=== PATIENT | male | born 1945 | race Caucasian/White ===

== ENCOUNTER 2016-12-28 18:23 | Inpatient (IN) | payer MEDICARE, MEDICAID ==
[~2016-12-28] VITALS: Ht 175.3 cm; Wt 79.4 kg
[~2016-12-28 18:23] MED LIST: ACET650S13 RC; ATOR20TA PO; BACL10TA PO; BISA10SU8 RC; CARV6.25 PO; CLOP75TA2 PO; Hydrocodone Bit/Acetaminophen PO; LORA1TAB PO; PREG150C PO
[2016-12-28] MEDS ORDERED: HYDR453.3 TP (18:41)
[2016-12-28] MEDS ORDERED: ONDA4TAB5 PO (18:42)
[2016-12-28] MEDS ORDERED: MAGN400C PO (18:43)
[2016-12-28] MEDS ORDERED: AMLO5TAB2 PO (18:43)
[2016-12-28] MEDS ORDERED: POTA-10 PO (18:44)
[2016-12-28] MEDS ORDERED: ZOLP5TAB7 PO (18:45)
[2016-12-28] MEDS ORDERED: VANCOMYCIN IV 1,000 MG in IV DEXTROSE 5% 250 ML IV ONE (19:15)
--- NOTE | 2016-12-28 19:15 | NUR ---
care endorsed by [facility] nurse... pt here for wound check on left upper back, pt in bed alert, oriented x 4, no resp distress noted or reported upon assessment...will continue to monitor for safety, comfort and pain...
[2016-12-28 19:40] LABS: BASOPHILS # (AUTO) 0.1 K/uL (0.0-0.2); BASOPHILS % (AUTO) 0.7 % (0.0-2.0); EOSINOPHILS # (AUTO) 0.5 K/uL (0.0-0.7); EOSINOPHILS % (AUTO) 5.4 % (0.0-7.0); HEMOGLOBIN 15.6 g/dL (14.0-18.0); LYMPHOCYTES # (AUTO) 1.4 K/uL (0.8-4.8); LYMPHOCYTES % (AUTO) 13.8 % (20.5-51.5); MEAN CORPUSCULAR HEMOGLOBIN 28.9 uug (27.0-31.0); MEAN CORPUSCULAR HGB CONC 34 g/dL (32.0-37.0); MEAN CORPUSCULAR VOLUME 85.3 fL (82.0-92.0); MONOCYTES # (AUTO) 0.5 K/uL (0.1-1.30); MONOCYTES % (AUTO) 5.1 % (0.0-11.0); NEUTROPHILS # (AUTO) 7.7 K/uL (1.8-8.9); PLATELET COUNT (AUTO) 134 K/uL (150-450); RED BLOOD CELL COUNT(AUTO) 5.39 MIL/uL (4.70-6.10); RED CELL DISTRIBUTION WIDTH 13.6 % (11.5-14.5); WHITE BLOOD COUNT (AUTO) 10.2 K/uL (4.0-11.2)
[2016-12-28 19:43] LABS: CALCIUM 8.9 mg/dL (8.5-10.1); CREATININE 0.8 mg/dL (0.6-1.3); POTASSIUM 3.9 mmol/L (3.5-5.1)
[2016-12-28] MEDS ORDERED: AZITHROMYCIN IV 500 MG in IV DEXTROSE 5% 250 ML IV ONE (19:45)
[2016-12-28] MEDS ORDERED: CEFTRIAXONE 1 G in IV DEXTROSE 5% 50 ML IV ONE (19:45)
[2016-12-28 19:48] LABS: ALBUMIN 3.7 g/dL (3.4-5.0); BILIRUBIN,DIRECT 0.2 mg/dL (0.0-0.2); BILIRUBIN,TOTAL 0.6 mg/dL (0.2-1.0); TOTAL PROTEIN, SERUM 7.4 g/dL (6.4-8.2)
[2016-12-28 19:50] LABS: TROPONIN I 0.017 ng/mL (0.00-0.056)
[2016-12-28] MEDS ORDERED: VANCOMYCIN IV 200 ML ONE (19:51)
[2016-12-28 19:55] LABS: LACTIC ACID 1.4 mmol/L (0.4-2.0)
[2016-12-28] MEDS ORDERED: CEFTRIAXONE 1 G VIAL ONE (19:57)
[2016-12-28] MEDS ORDERED: AZITHROMYCIN 500 MG VIAL IV ONE (20:17)
[2016-12-28] MEDS ORDERED: IV NORMAL SALINE 1000 ML BAG IV ONE (20:30)
--- NOTE | 2016-12-28 21:02 | NUR ---
PAGED DR BRADFORD REQUEST BY DR SHERIDAN FOR ADMISSION TO HOSPITAL. WAITING FOR CALL BACK
[2016-12-28 21:40] LABS: *BILIRUBIN,URIN NEGATIVE (NEGATIVE); *BLOOD, URINE NEGATIVE (NEGATIVE); *CLARITY,URINE CLEAR (CLEAR); *COLOR,URINE YELLOW (YELLOW); *KETONES,URINE NEGATIVE (NEGATIVE); *PROTEIN,URINE TRACE (NEGATIVE); *UROBILINOGEN,URINE 0.2 E.U./dl (NORMAL); LEUKOCYTE ESTERASE ,URINE NEGATIVE (NEGATIVE); NITRITE, URINE NEGATIVE (NEGATIVE); UGLUCOSE NEGATIVE (NEGATIVE)
--- NOTE | 2016-12-28 21:48 | NUR ---
[address]ND P[address] FOR DR BRADFORD. WAITING FOR CALL BACK
[2016-12-28 21:52] LABS: MUCUS,URINE MODERATE /LPF (0-FEW); SQUAMOUS EPITHELIAL CELL,UR FEW /HPF (NONE SEEN); WBC,URINE 0-3 /HPF (0-3)
--- NOTE | 2016-12-28 22:32 | NUR ---
Pt. admitted to Tele , under care of Dr. Mathews, Belongs List completed, pt is alert, oriented x 4, no resp distress noted or reported upon transfer assessment... pt transferred via gurney...
--- NOTE | 2016-12-28 23:15 | NUR ---
[facility] USHERED TO ROOM AND PLACED COMFORTABLY ON BED. ABLE TO MAKE NEEDS KNOWN. ABLE TO PROVIDE HISTORY. WITH LEFT SIDE WEAKNESS AND LEFT AKA. BODY ASSESSMENT DONE. SAFETY INITIATED. INSTRUCTED HOW TO USE CALL LIGHT WHEN IN NEED OF ASSISTANCE. CALL LIGHT WITHIN REACH. WILL CONTINUE TO MONITOR
[2016-12-29 05:43] VITALS: BP 125/78
--- NOTE | 2016-12-29 06:21 | NUR ---
SLEPT INTERMITTENTLY DURING THE SHIFT, NO ACUTE DISTRESS NOTED. REMAINS SINUS RHYTHM. NEEDS ATTENDED. KEPT COMFORTABLE AT ALL TIMES. CALL LIGHT WITHIN REACH
[2016-12-29 07:12] LABS: CALCIUM 8.6 mg/dL (8.5-10.1); CREATININE 0.7 mg/dL (0.6-1.3); POTASSIUM 3.5 mmol/L (3.5-5.1)
[2016-12-29] MEDS ORDERED: ACETAMINOPHEN 325 MG TABLET PO PRN (08:30)
[2016-12-29] MEDS ORDERED: LORAZEPAM 1 MG TABLET PO PRN (08:30)
[2016-12-29] MEDS ORDERED: ONDANSETRON HCL 4 MG TABLET PO PRN (08:30)
[2016-12-29] MEDS: MAGNESIUM OXIDE 400 MG TABLET PO SCH (09:05)
[2016-12-29] MEDS: PREGABALIN 25 MG CAPSULE PO SCH ×2 (09:05→17:12)
[2016-12-29] MEDS: POTASSIUM CHLORIDE 10 MEQ CAPSULE.SA PO SCH (09:05)
[2016-12-29] MEDS: CLOPIDOGREL 75 MG TABLET PO SCH (09:05)
[2016-12-29] MEDS: AMLODIPINE 5 MG TABLET PO SCH (09:06)
[2016-12-29] MEDS: BACLOFEN 10 MG TABLET PO SCH ×2 (09:08→17:12)
[2016-12-29] MEDS: HYDROCORTISONE 2.5% CREAM 20 GM TUBE TOP SCH (11:12)
[2016-12-29 11:36] VITALS: BP 122/86
[2016-12-29 16:08] VITALS: BP 131/81
[2016-12-29] MEDS ORDERED: HYDROCODONE/APAP 5-325MG TABLET PO PRN (17:00)
[2016-12-29] MEDS: CARVEDILOL 6.25 MG TABLET PO SCH (17:18)
--- NOTE | 2016-12-29 19:30 | NUR ---
RESTING IN BED, ABLE TO MAKE NEEDS KNOWN. NO ACUTE DISTRESS NOTED. SAFETY MAINTAINED. NEEDS ATTENDED. CALL LIGHT WITHIN REACH. WILL CONTINUE TO MONITOR
[2016-12-29 20:00] VITALS: BP 124/79
[2016-12-29] MEDS: ATORVASTATIN 20 MG TABLET PO SCH (21:16)
[2016-12-29] MEDS: ZOLPIDEM 5 MG TABLET PO SCH (21:17)
[2016-12-30 04:38] VITALS: BP 117/66
--- NOTE | 2016-12-30 06:04 | NUR ---
SLEPT INTERMITTENTLY DURING THE SHIFT. NO ACUTE DISTRESS NOTED. ALL DUE MEDS GIVEN ORDERED. TURNED AND REPOSITIONED. NEEDS ATTENDED. CALL LIGHT WITHIN REACH
[2016-12-30] MEDS: BACLOFEN 10 MG TABLET PO SCH ×2 (08:11→17:29)
[2016-12-30] MEDS: CLOPIDOGREL 75 MG TABLET PO SCH (08:11)
[2016-12-30] MEDS: POTASSIUM CHLORIDE 10 MEQ CAPSULE.SA PO SCH (08:11)
[2016-12-30] MEDS: MAGNESIUM OXIDE 400 MG TABLET PO SCH (08:12)
[2016-12-30] MEDS: CARVEDILOL 6.25 MG TABLET PO SCH ×2 (08:12→17:34)
[2016-12-30] MEDS: AMLODIPINE 5 MG TABLET PO SCH (08:12)
[2016-12-30] MEDS: PREGABALIN 25 MG CAPSULE PO SCH ×2 (08:12→17:29)
[2016-12-30] MEDS: HYDROCORTISONE 2.5% CREAM 20 GM TUBE TOP SCH (08:13)
[2016-12-30] MEDS: PIPERACILLIN/TAZOBACTAM/D5W 50 ML IV SCH ×3 (08:21→20:10)
--- NOTE | 2016-12-30 09:20 | NUR ---
CLINICAL PHARMACY NOTE:VANCOMYCIN DOSING Subjective: To start vancomycin dosing on 71 y/o male for PNA Objective: Temp 98.3 BUN 9 (4/5) Scr 0.7 (4/5) WBC 10.2 (4/5) wt 175 lb ht 5' 9'' Assessment/Plan: Will start Vancomycin 1250mg IV every 16hrs for predicted vancomycin trough level of 16 mcg/ml s steady state. First dose is due today at 0900. Plan to draw through by 4th dose(level not yet ordered). Will monitor renal function daily and adjust as needed. Will continue to monitor.
[2016-12-30] MEDS: VANCOMYCIN IV 1,250 MG in IV DEXTROSE 5% 500 ML IV SCH (09:25)
[2016-12-30 11:43] VITALS: BP 123/81
--- NOTE | 2016-12-30 12:40 | NUR ---
WOUND CARE CONSULT: PATIENT SEEN AND SKIN ASSESSMENT DONE. PATIENT ALERT, ORIENTED, LEFT AKA, ABLE TO TURN AND REPOSITION HOWEVER NEEDS ASSIST, MAINE 14, CONTINENT. SEE TODAY'S SKIN ASSESSMENT IN PCS ALONG WITH RECOMMENDATIONS. RECOMMEND MOISTURE PROTECTION WITH Z GUARD PRN AND ASSIST PATIENT FOR PRESSURE PREVENTION MEASURES. ALL DISCUSSED WITH NURSING STAFF. MD IN AGREEMENT WITH PLAN OF CARE. Addendum: 12/30/16 at 1243 by COSMO AYALA WNDNU Amended: Links added.
[2016-12-30] MEDS ORDERED: Z GUARD REMEDY PASTE 57 GM TUBE TOP PRN (12:45)
[2016-12-30 16:00] VITALS: BP 133/83
--- NOTE | 2016-12-30 19:30 | NUR ---
NO CHANGES NOTED.
[2016-12-30 20:00] VITALS: BP 138/78
--- NOTE | 2016-12-30 20:00 | NUR ---
RECEIVED PATIENT AWAKE IN BED. PATIENT IS A/O X2. DENIES PAIN OR DISCOMFORT. NO RESP. DISTRESS NOTED. H/L INTACT AND PATENT, NOTED TO RIGHT FA #22 GAUGE. VSS. BED ALARM ON. CALL LIGHT IN REACH. ALL NEEDS ATTENDED. WILL CONTINUE TO MONITOR.
[2016-12-30] MEDS: ATORVASTATIN 20 MG TABLET PO SCH (20:34)
[2016-12-30] MEDS: ZOLPIDEM 5 MG TABLET PO SCH (20:34)
[2016-12-31] MEDS: VANCOMYCIN IV 1,250 MG in IV DEXTROSE 5% 500 ML IV SCH ×2 (00:57→01:50)
[2016-12-31] MEDS: PIPERACILLIN/TAZOBACTAM/D5W 50 ML IV SCH ×4 (01:00→13:46)
[2016-12-31 05:45] VITALS: BP 127/80
--- NOTE | 2016-12-31 06:11 | NUR ---
PATIENT AWAKE IN BED. SLEPT AT SMALL INTERVALS. VSS. DENIES PAIN OR DISCOMFORT. NO RESP. DISTRESS NOTED. BED ALARM ON. CALL LIGHT IN REACH. ALL NEEDS ATTENDED. WILL CONTINUE TO MONITOR.
--- NOTE | 2016-12-31 07:00 | NUR ---
PT IS LAYING IN BED COMFORTABLY. NO S/S OF RESPIRATORY DISTRESS NOTED. NO PAIN NOTED. ALL SAFETY NEEDS ARE MET. WILL CONTINUE TO MONITOR.
[2016-12-31] MEDS: CARVEDILOL 6.25 MG TABLET PO SCH (08:00)
[2016-12-31] MEDS: CLOPIDOGREL 75 MG TABLET PO SCH (08:23)
[2016-12-31] MEDS: BACLOFEN 10 MG TABLET PO SCH (08:23)
[2016-12-31] MEDS: PREGABALIN 25 MG CAPSULE PO SCH (08:24)
[2016-12-31] MEDS: MAGNESIUM OXIDE 400 MG TABLET PO SCH (08:24)
[2016-12-31] MEDS: POTASSIUM CHLORIDE 10 MEQ CAPSULE.SA PO SCH (08:24)
[2016-12-31] MEDS: AMLODIPINE 5 MG TABLET PO SCH (08:25)
[2016-12-31] MEDS: HYDROCORTISONE 2.5% CREAM 20 GM TUBE TOP SCH (08:26)
[2016-12-31 11:04] VITALS: BP 129/84
[2016-12-31] MEDS ORDERED: RXVAN XX (12:17)
[2016-12-31] MEDS ORDERED: PIPE3.376 IV (12:17)
--- NOTE | 2016-12-31 16:30 | NUR ---
PT IS DISCHRGED. NO S/S OF RESPIRATORY DISTRESS NOTED. NO PAIN REPORTED. PICTURES ARE TAKEN OF SKIN. EDUCATION IS PROVIDED. REPORT IS GIVEN TO MERYL BURDEN FROM [facility]. WRISTBAND IS REMOVED. V/S WNL.
[2016-12-31 16:33] VITALS: BP 127/80
--- NOTE | 2016-12-31 16:42 | NUR ---
CLINICAL PHARMACY NOTE:VANCOMYCIN DOSING Subjective: To continue vancomycin dosing on 71 y/o male for PNA Objective: Temp 98.6 BUN 9 (4/5) Scr 0.7 (4/5) WBC 10.2 (4/5) wt 175 lb ht 5' 9'' Assessment/Plan: Will continue Vancomycin 1250mg IV every 16hrs for predicted vancomycin trough level of 16 mcg/ml s steady state. Third dose today at 1700. Plan to draw through by 4th dose(ordered for tomorrow 01/01 @ 0830). Will check trough in am and adjust as needed. Will monitor renal function daily and adjust as needed. Will continue to monitor.
== END 2016-12-31 16:40 | DRG 602 ==
LOC: ER 18:31 → TELE 22:25 → MED 12-29 14:13
PROVIDERS: ADMIT Internal Medicine; ATTEND Internal Medicine
DX: L03.312 Cellulitis of back [any part except buttock and flank] (principal); J18.9 Pneumonia, unspecified organism; I69.354 Hemiplegia and hemiparesis following cerebral infarction affecting left non-dominant side; Z89.612 Acquired absence of left leg above knee; Z90.49 Acquired absence of other specified parts of digestive tract; Z79.02 Long term (current) use of antithrombotics/antiplatelets; I25.10 Atherosclerotic heart disease of native coronary artery without angina pectoris; K21.9 Gastro-esophageal reflux disease without esophagitis; B96.89 Other specified bacterial agents as the cause of diseases classified elsewhere; I73.9 Peripheral vascular disease, unspecified; M10.9 Gout, unspecified; G89.29 Other chronic pain; F03.90 Unspecified dementia, unspecified severity, without behavioral disturbance, psychotic disturbance, mood disturbance, and anxiety; E78.00 Pure hypercholesterolemia, unspecified; N28.9 Disorder of kidney and ureter, unspecified; Z79.899 Other long term (current) drug therapy; I10 Essential (primary) hypertension; I25.2 Old myocardial infarction; Z85.828 Personal history of other malignant neoplasm of skin
CPT/HCPCS: 36415; 70030-TC; 71010; 83605; 85025; 85730; 87040; 87070; 87077; 87086; 93005; 97001; A4663; J0456; J0696; J2543; J3370; J7030; J7050; J7060

== ENCOUNTER 2019-01-25 19:04 | Inpatient (IN) | payer MEDICARE, OTHER ==
[~2019-01-25] VITALS: Ht 172.7 cm; Wt 67.1 kg
[~2019-01-25 19:04] MED LIST changes: +AMLO5TAB9 PO; -BISA10SU8 RC; +CLOP75TA15 PO; -CLOP75TA2 PO; +HYDR453.3 TP; +MAGN400C PO; +ONDA4TAB5 PO; +PIPE3.376 IV; +POTA-10 PO; +RXVAN XX; +ZOLP5TAB8 PO
[2019-01-25] MEDS ORDERED: CEFTRIAXONE 1 G in IV DEXTROSE 5% 50 ML IV ONE (19:15)
[2019-01-25] MEDS ORDERED: METRONIDAZOLE 500 MG/NS 100ML 100 ML IV ONE ×2 (19:15→19:27)
[2019-01-25] MEDS ORDERED: VANCOMYCIN IV 1,000 MG in IV DEXTROSE 5% 250 ML IV ONE (19:15)
--- NOTE | 2019-01-25 19:15 | NUR ---
PATIENT WAS SEEN BY MD. HE IS AWAKE AND ALERT.
[2019-01-25] MEDS ORDERED: HYDR-3326 PO (19:26)
[2019-01-25] MEDS ORDERED: KETO120S6 TP (19:26)
[2019-01-25] MEDS ORDERED: PROC10TA13 PO (19:26)
[2019-01-25] MEDS ORDERED: SERT50TA12 PO (19:26)
[2019-01-25] MEDS ORDERED: ONDA4TAB11 PO (19:26)
[2019-01-25] MEDS ORDERED: CEFTRIAXONE 1 G VIAL ONE (19:26)
[2019-01-25] MEDS ORDERED: QUET50TA PO (19:26)
[2019-01-25] MEDS ORDERED: DIVA250T4 PO (19:26)
[2019-01-25] MEDS ORDERED: MIRT15TA7 PO (19:26)
--- NOTE | 2019-01-25 19:28 | NUR ---
Dr. Salinas speaking with Dr. Marc of [facility] medical [facility].
[2019-01-25 19:38] LABS: BASOPHILS # (AUTO) 0.1 K/uL (0.0-8.0); BASOPHILS % (AUTO) 1.1 % (0.0-2.0); EOSINOPHILS # (AUTO) 0.5 K/uL (0.0-0.7); EOSINOPHILS % (AUTO) 5.7 % (0.0-7.0); HEMOGLOBIN 13.2 g/dL (12.5-16.3); LYMPHOCYTES # (AUTO) 1.6 K/uL (20.0-40.0); LYMPHOCYTES % (AUTO) 18.9 % (20.5-51.5); MEAN CORPUSCULAR HEMOGLOBIN 28.2 uug (23.8-33.4); MEAN CORPUSCULAR HGB CONC 33 g/dL (32.5-36.3); MEAN CORPUSCULAR VOLUME 85.6 fL (73.0-96.2); MONOCYTES # (AUTO) 0.5 K/uL (2.0-10.0); MONOCYTES % (AUTO) 6.4 % (0.0-11.0); NEUTROPHILS # (AUTO) 5.7 K/uL (1.8-8.9); NEUTROPHILS % (AUTO) 67.9 % (38.5-71.5); PLATELET COUNT (AUTO) 161 K/uL (152-348); RED BLOOD CELL COUNT(AUTO) 4.67 MIL/uL (4.06-5.63); WHITE BLOOD COUNT (AUTO) 8.4 K/uL (3.6-10.2)
[2019-01-25 19:46] LABS: CARBON DIOXIDE 26 mmol/L (21-32); CHLORIDE 105 mmol/L (98-107); CREATININE 0.6 mg/dL (0.6-1.3); GLUCOSE 127 mg/dL (74-106); POTASSIUM 3.9 mmol/L (3.5-5.1); UREA NITROGEN, BLOOD 17 mg/dL (7-18)
[2019-01-25 19:52] LABS: ALANINE AMINOTRANSFERASE 21 U/L (16-63); ALKALINE PHOSPHATASE 87 U/L (50-136); ASPARTATE AMINOTRANSFERASE 10 U/L (15-37); BILIRUBIN,DIRECT 0.2 mg/dL (0.0-0.2); BILIRUBIN,TOTAL 0.5 mg/dL (0.2-1.0); TOTAL PROTEIN, SERUM 6.9 g/dL (6.4-8.2)
--- NOTE | 2019-01-25 20:01 | NUR ---
REPORT GIVEN TO BRAYDEN SHETH ON M/S FLOOR.
--- NOTE | 2019-01-25 20:01 | NUR ---
NEW DRESSING APPLIED TO LEFT ARM.
[2019-01-25] MEDS ORDERED: VANCOMYCIN IV 200 ML ONE (20:08)
--- NOTE | 2019-01-25 20:14 | NUR ---
PATIENT TO RECEIVE VANCO ON M/S FLOOR. BRAYDEN AWARE. DR TSE WROTE AN ORDER FOR MED TO BE GIVEN ON M/S FLOOW SINCE YL IS RUNNING NOW....
--- NOTE | 2019-01-25 20:20 | NUR ---
Received patient via gurney, awake and alert, accompanied by ED nurse. Transferred to hospital bed safely, changed into hospital gown and made comfortable in bed. Patient is tolerating room air, not in any form of distress. Patient is being admitted for left upper arm cellulitis/pressure ulcer. Noted left arm wound, dressed and covered with kerlix, dry and intact. Patient has an IV access on the right antecubital vein, 20g to ongoing Flagyl. Noted skin excoriation at the upper back, cleansed, applied hydrogel and covered with nonadherent dressing. 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 Patient oriented to unit. No complaints at the moment. Bed in low position, locked, side rails up x 2. Call light within reach. Will continue to monitor. Noise and lights subdued.
[2019-01-25 20:54] VITALS: BP 105/79
[2019-01-25] MEDS ORDERED: HYDROCODONE BIT PO PRN (21:00)
[2019-01-25] MEDS ORDERED: ONDANSETRON ODT 4 MG TAB.RAPDIS SL PRN (21:00)
[2019-01-25] MEDS ORDERED: LORAZEPAM 1 MG TABLET PO PRN (21:00)
[2019-01-25] MEDS ORDERED: ACETAMINOPHEN PO PRN (21:00)
[2019-01-25] MEDS ORDERED: PROCHLORPERAZINE MALEATE 10 MG TABLET PO SCH (21:00)
[2019-01-25] MEDS ORDERED: Medication Not On Formulary EA (Quetiapine Fumarate (Seroquel) 50 MG) PO SCH (21:00)
[2019-01-25] MEDS: ATORVASTATIN 20 MG TABLET PO SCH (21:39)
[2019-01-25] MEDS: MIRTAZAPINE 15 MG TABLET PO SCH (21:39)
[2019-01-25] MEDS ORDERED: VANCOMYCIN IV 1 G in PREMIXED 0 EACH IV SCH (22:00)
[2019-01-26] MEDS: HYDROCODONE/APAP 5-325MG TABLET PO PRN ×2 (02:25→10:58)
[2019-01-26 04:34] VITALS: BP 119/87
--- NOTE | 2019-01-26 05:48 | NUR ---
Patient slept well throughout the night. With IV access to saline lock, patent and intact. Wound treatment and dressing change done. Complained of pain, relieved with PRN pain medication. No other complaints made. No other untoward events noted. Attended all needs. Ensured safety and comfort.
[2019-01-26 06:19] LABS: BASOPHILS # (AUTO) 0.1 K/uL (0.0-8.0); BASOPHILS % (AUTO) 0.7 % (0.0-2.0); EOSINOPHILS # (AUTO) 0.4 K/uL (0.0-0.7); HEMATOCRIT 38.8 % (36.7-47.1); HEMOGLOBIN 13.1 g/dL (12.5-16.3); LYMPHOCYTES # (AUTO) 1.1 K/uL (20.0-40.0); LYMPHOCYTES % (AUTO) 13.3 % (20.5-51.5); MEAN CORPUSCULAR HEMOGLOBIN 28.9 uug (23.8-33.4); MEAN CORPUSCULAR HGB CONC 34 g/dL (32.5-36.3); MEAN CORPUSCULAR VOLUME 85.4 fL (73.0-96.2); MONOCYTES # (AUTO) 0.5 K/uL (2.0-10.0); MONOCYTES % (AUTO) 6.8 % (0.0-11.0); NEUTROPHILS # (AUTO) 5.9 K/uL (1.8-8.9); NEUTROPHILS % (AUTO) 74.2 % (38.5-71.5); PLATELET COUNT (AUTO) 145 K/uL (152-348); RED BLOOD CELL COUNT(AUTO) 4.54 MIL/uL (4.06-5.63); WHITE BLOOD COUNT (AUTO) 7.9 K/uL (3.6-10.2)
[2019-01-26 06:36] LABS: CARBON DIOXIDE 26 mmol/L (21-32); CHLORIDE 106 mmol/L (98-107); CREATININE 0.6 mg/dL (0.6-1.3); GLUCOSE 96 mg/dL (74-106); POTASSIUM 3.9 mmol/L (3.5-5.1); UREA NITROGEN, BLOOD 14 mg/dL (7-18)
--- NOTE | 2019-01-26 08:00 | NUR ---
AWAKE ALERT AND VERBALLY RESPONSIVE, PATIENT NOTED TO BE EASILY GET AGITATED AND ANXIOUS ABOUT STAYING IN THE HOSPITAL "I WANT TO GO HOME IV"E BEEN HERE SINCE LAST NIGHT" REALITY ORIENTATION DONE. NO SS OF DISTRESS OR SEVERE PAIN, CLOSELY MONITORED
[2019-01-26] MEDS: DIVALPROEX 250 MG TABLET.DR PO SCH (08:21)
[2019-01-26] MEDS: BACLOFEN 10 MG TABLET PO SCH ×2 (08:21→17:24)
[2019-01-26] MEDS: SERTRALINE HCL 50 MG TABLET PO SCH (08:21)
[2019-01-26] MEDS: CLOPIDOGREL 75 MG TABLET PO SCH (08:21)
[2019-01-26] MEDS: Z GUARD REMEDY PASTE 57 GM TUBE TOP PRN (08:22)
[2019-01-26] MEDS: AMLODIPINE 5 MG TABLET PO SCH (08:24)
[2019-01-26] MEDS: MAGNESIUM OXIDE 400 MG TABLET PO SCH (08:34)
[2019-01-26] MEDS: POTASSIUM CHLORIDE 10 MEQ TAB.PRT.SR PO SCH (08:34)
[2019-01-26] MEDS ORDERED: HYDROCODONE/APAP 5-325MG TABLET PO PRN (08:45)
[2019-01-26] MEDS ORDERED: POTASSIUM CHLORIDE PO SCH (09:00)
[2019-01-26] MEDS ORDERED: Medication Not On Formulary EA (Pregabalin (Lyrica) 75 MG) PO SCH (09:00)
[2019-01-26] MEDS: PREGABALIN 25 MG CAPSULE PO SCH ×2 (10:58→20:09)
--- NOTE | 2019-01-26 11:00 | NUR ---
SEEN BY RONALD DÍAZ FOR WOUND FOLLOW-UP WITH ORDERS. CONTINUE WITH PAIN MANAGEMENT. NO ACUTE CHANGE
[2019-01-26 11:09] VITALS: BP 123/77
[2019-01-26] MEDS: HYDROCORTISONE 2.5% CREAM 20 GM TUBE TOP SCH (11:54)
[2019-01-26] MEDS: NYSTATIN/TRIAMCINOLONE CREAM 15 GM TUBE TOP SCH ×2 (13:58→20:17)
[2019-01-26] MEDS: VANCOMYCIN IV 1 G in PREMIXED 0 EACH IV SCH ×2 (14:28→21:25)
[2019-01-26 15:20] VITALS: BP 113/85
[2019-01-26] MEDS: CARVEDILOL 6.25 MG TABLET PO SCH (17:27)
--- NOTE | 2019-01-26 17:30 | NUR ---
SEEN BY COLLECTION TEAM LEAD FOR ID SEE NOTES.
--- NOTE | 2019-01-26 17:37 | NUR ---
PHARMACY CLINICAL NOTES ( VANCOMYCIN DOSING) S: 73 YO male with DX of infected left arm (celllulitis) , being treated empirically with Vancomcyin O: BUN/SCR 14/0.6, WBC 7.9, TEMP 98.3, DOSING WT 67 KG A/P: Patient received 1 gm Vancomycin last night @ 2200, will continue with 1gm ivpb q12h. first dose ~ 1400 (dose #1) . Estimated peak 37.3 and trough of 18. will continue to monitor renal fxn and Vanco level prior to 4th dose (not ordered yet ) and adjust the dose accordingly if necessary.
[2019-01-26] MEDS ORDERED: ZOLPIDEM 5 MG TABLET PO SCH (18:00)
--- NOTE | 2019-01-26 18:11 | NUR ---
CONTINUE WITH IV ANTIBIOTIC FOR CELLULITIS, NO ALLERGY REACTION NOTED
--- NOTE | 2019-01-26 19:40 | NUR ---
Received patient awake and alert in bed. No signs of acute distress noted. No complaints of pain or SOB. Patient is on low air loss mattress. Heplock on the right AC is intact and patent. Safety measures initiated. Bed is low and locked, call light within reach. Will continue to monitor.
[2019-01-26 20:00] VITALS: BP 119/79
[2019-01-26] MEDS: CEFTRIAXONE 1 G in IV DEXTROSE 5% 50 ML IV SCH (20:07)
[2019-01-26] MEDS: QUETIAPINE FUMARATE 25 MG TABLET PO SCH (20:09)
[2019-01-26] MEDS: MIRTAZAPINE 15 MG TABLET PO SCH (20:09)
[2019-01-26] MEDS: ATORVASTATIN 20 MG TABLET PO SCH (20:10)
[2019-01-26] MEDS: ZOLPIDEM 5 MG TABLET PO SCH (21:00)
[2019-01-27 04:47] VITALS: BP 113/69
[2019-01-27] MEDS: HYDROCODONE/APAP 5-325MG TABLET PO PRN ×2 (05:29→15:49)
--- NOTE | 2019-01-27 05:58 | NUR ---
Patient slept well throughout shift. No signs of acute distress noted. No complaints of SOB. Complained of 5/10 pain during dressing change to left arm. PRN pain medication given and is effective. Heplock on the right AC is intact and patent. All medications given as ordered and tolerated well. Will endorse to next shift plan of care.
--- NOTE | 2019-01-27 07:12 | NUR ---
received patient in bed alert and oriented. No signs of acute distress noted. No complaints of SOB. Heplock on the right AC is intact and patent. will continue treatment plan.
[2019-01-27] MEDS: VANCOMYCIN IV 1 G in PREMIXED 0 EACH IV SCH ×2 (08:53→21:28)
[2019-01-27] MEDS: CARVEDILOL 6.25 MG TABLET PO SCH ×2 (09:16→17:43)
[2019-01-27] MEDS: POTASSIUM CHLORIDE 10 MEQ TAB.PRT.SR PO SCH (09:17)
[2019-01-27] MEDS: CLOPIDOGREL 75 MG TABLET PO SCH (09:17)
[2019-01-27] MEDS: SERTRALINE HCL 50 MG TABLET PO SCH (09:17)
[2019-01-27] MEDS: BACLOFEN 10 MG TABLET PO SCH ×2 (09:17→17:37)
[2019-01-27] MEDS: DIVALPROEX 250 MG TABLET.DR PO SCH (09:17)
[2019-01-27] MEDS: AMLODIPINE 5 MG TABLET PO SCH (09:17)
[2019-01-27] MEDS: MAGNESIUM OXIDE 400 MG TABLET PO SCH (09:17)
[2019-01-27] MEDS: HYDROCORTISONE 2.5% CREAM 20 GM TUBE TOP SCH (09:26)
[2019-01-27] MEDS: NYSTATIN/TRIAMCINOLONE CREAM 15 GM TUBE TOP SCH ×2 (09:26→20:17)
[2019-01-27] MEDS: PREGABALIN 25 MG CAPSULE PO SCH ×2 (09:27→20:11)
[2019-01-27 11:03] VITALS: BP 121/80
[2019-01-27 15:05] VITALS: BP 106/82
--- NOTE | 2019-01-27 15:18 | NUR ---
PHARMACY CLINICAL NOTES ( VANCOMYCIN DOSING) S: 73 YO male with DX of infected left arm (celllulitis) , being treated empirically with Vancomcyin O: BUN/SCR 14/0.6 (01/26), WBC 7.9 (01/26), TEMP 98, DOSING WT 67 KG Trough pending tomorrow at 0830 A/P: Will continue with 1gm ivpb q12h for estimated peak 37.3 and trough of 18. Trough due tomorrow at 0830 before 4th scheduled dose. Will check level at that time and adjust as needed. Will follow
--- NOTE | 2019-01-27 18:25 | NUR ---
patient in bed, alert and oriented. No signs of acute distress noted. No complaints of SOB. Heplock on the right FA is intact and patent. all due medications given, treatment on the left arm and on back provide, all needs attended. will continue treatment plan with security shift supervisor.
[2019-01-27 19:28] VITALS: BP 127/74
--- NOTE | 2019-01-27 19:35 | NUR ---
Received patient in bed awake and alert. No signs of acute distress noted. No complaints of pain or SOB. Heplock on the right forearm is intact. Dressing on the left arm is intact. Patient able to make needs known. Safety measures initiated. Bed is low and locked, call light within reach. Will continue to monitor.
[2019-01-27] MEDS: QUETIAPINE FUMARATE 25 MG TABLET PO SCH (20:11)
[2019-01-27] MEDS: CEFTRIAXONE 1 G in IV DEXTROSE 5% 50 ML IV SCH (20:11)
[2019-01-27] MEDS: ATORVASTATIN 20 MG TABLET PO SCH (20:11)
[2019-01-27] MEDS: MIRTAZAPINE 15 MG TABLET PO SCH (20:11)
[2019-01-27] MEDS: ZOLPIDEM 5 MG TABLET PO SCH (21:00)
[2019-01-28] MEDS: HYDROCODONE/APAP 5-325MG TABLET PO PRN ×3 (04:59→18:40)
--- NOTE | 2019-01-28 06:47 | NUR ---
Patient slept well throughout shift. No signs of acute distress. Complained of pain with PRN pain medication given x1 and was effective. Dressing changed done. Medications given as ordered. Patient continues to refuse Ambien saying "he never took that stuff and doesn't have trouble sleeping" Safety measures given .
--- NOTE | 2019-01-28 07:46 | NUR ---
ON FIRST STEP NAYANA FOR COMFORT AWAKE ALERT AND ORIENTED STATED FEELS OKAY AT THIS TIME LEFT ARM WITH DRESSING INTACT WITH NO S/S OF DRAINAGE AT THIS TIME ON ROOM AIR CALL LIGHTS AND PERSONAL BELONGINGS PLACED WITHIN EASY REACH WILL CONTINUE TO OBSERVE AND PROVIDE COMFORT AT ALL TIMES.
--- NOTE | 2019-01-28 07:47 | NUR ---
WOUND CARE CONSULT WOUND CARE RECEIVED CONSULT FOR LEFT ARM CELLULITIS AND BACK SKIN EXCORIATION. WOUND CARE WILL DEFER CONSULT AND TREATMENT PLANS TO PLASTIC SURGICAL TEAM WHO ARE CURRENTLY FOLLOWING THIS PATIENT. PATIENT WITH MAINE AT 11, ALL PRESSURE ULCER PREVENTION MEASURES ARE NOTED TO BE IN PLACE AT THIS TIME. WILL SEE PRN.
[2019-01-28] MEDS: MAGNESIUM OXIDE 400 MG TABLET PO SCH (08:34)
[2019-01-28] MEDS: BACLOFEN 10 MG TABLET PO SCH ×2 (08:34→17:08)
[2019-01-28] MEDS: POTASSIUM CHLORIDE 10 MEQ TAB.PRT.SR PO SCH (08:34)
[2019-01-28] MEDS: DIVALPROEX 250 MG TABLET.DR PO SCH (08:34)
[2019-01-28] MEDS: CLOPIDOGREL 75 MG TABLET PO SCH (08:34)
[2019-01-28] MEDS: SERTRALINE HCL 50 MG TABLET PO SCH (08:34)
[2019-01-28] MEDS: Z GUARD REMEDY PASTE 57 GM TUBE TOP PRN (08:35)
[2019-01-28] MEDS: HYDROCORTISONE 2.5% CREAM 20 GM TUBE TOP SCH (08:35)
[2019-01-28] MEDS: NYSTATIN/TRIAMCINOLONE CREAM 15 GM TUBE TOP SCH ×2 (08:35→21:00)
[2019-01-28] MEDS: CARVEDILOL 6.25 MG TABLET PO SCH ×2 (08:37→17:08)
[2019-01-28] MEDS: AMLODIPINE 5 MG TABLET PO SCH (08:38)
[2019-01-28] MEDS: PREGABALIN 25 MG CAPSULE PO SCH ×2 (08:42→20:44)
[2019-01-28] MEDS ORDERED: KETOCONAZOLE 2% SHAMPOO 120 ML BOTTLE TP SCH (09:00)
[2019-01-28] MEDS: VANCOMYCIN IV 1 G in PREMIXED 0 EACH IV SCH ×2 (10:05→22:40)
[2019-01-28 11:41] VITALS: BP 111/72
--- NOTE | 2019-01-28 11:53 | NUR ---
PHARMACY CLINICAL NOTES ( VANCOMYCIN DOSING) S: To continue vanco dosing for this 73 yo male for infected left arm (celllulitis) O: BUN/SCR 14/0.6 (01/26), WBC 7.9 (01/26), TEMP 98.2 Trough level: 17.8 (on 01/28 at 0830) ht 172.7 cm wt 67 kg A/P: Since vanco trough level is within therapeutic range, will continue same dose of vanco 1gm ivpb q12h for today. Next dose at 2100 tonight. Will monitor renal function. Will follow
--- NOTE | 2019-01-28 12:00 | NUR ---
RECEIVED CALL FROM ИВАН MARIA PATIENT IS POSITIVE FOR MRSA WOUND ON HIS LEFT ARM CALLED AND NOTIFIED DR HANLEY WITH ORDERS TO PLACE PATIENT ON ISOLATION PATIENT IS ALREADY ON VANCOMICIN AND BEING FOLLOWED BY THE INFECTIOUS DISEASE PRACTITIONER. WILL CONTINUE TO OBSERVE
[2019-01-28 15:19] VITALS: BP 112/72
--- NOTE | 2019-01-28 17:36 | NUR ---
AWAKE RESTING DENIES DISCOMFORTS AT THIS TIME REMAIN ON ISOLATION ORDERED NOT IN DISTRESS AT THIS TIME.
--- NOTE | 2019-01-28 19:30 | NUR ---
PATIENT ALERT NO SOB NO CHEST PAIN NOTED, LEFT ARM WOUND DRESSING INTACT AT THIS TIME. TURN AND REPOSITION, ON CONTACT ISOLATION MRSA OF THE WOUND, KEPT COMFORTABLE.
[2019-01-28 20:00] VITALS: BP 113/79
[2019-01-28] MEDS: ATORVASTATIN 20 MG TABLET PO SCH (20:44)
[2019-01-28] MEDS: MIRTAZAPINE 15 MG TABLET PO SCH (20:44)
[2019-01-28] MEDS: QUETIAPINE FUMARATE 25 MG TABLET PO SCH (20:44)
[2019-01-28] MEDS: CEFTRIAXONE 1 G in IV DEXTROSE 5% 50 ML IV SCH (20:44)
[2019-01-28] MEDS: ZOLPIDEM 5 MG TABLET PO SCH (21:00)
--- NOTE | 2019-01-29 05:10 | NUR ---
PATIENT AWAKE, ALERT NO SOB NO CHEST PAIN, CONT ON PAIN MANAGEMENT OF LEFT ARM WOUND. TX DONE ON LEFT ARM WOUND AND L ARM SCAB WOUND, UPPER BACK WOUND AND RASHES. KEPT CLEAN AND DRY, TURN AND REPOSITION. REMAIN ON CONTACT ISOLATION MRSA OF THE WOUND. PATIENT ON AIR MATTRESS. CONT TO MONITOR.
[2019-01-29 05:30] VITALS: BP 136/88
--- NOTE | 2019-01-29 07:35 | NUR ---
PATIENT IS AWAKE ALERT AND VERBALLY RESPONSIVE BUT SOMEWHAT DISORIENTED ABLE TO MAKE SIMPLE NEEDS KNOWN.TOTALLY DEPENDENT ON NURSES FOR ALL ADL TURNED AND REPOSITIONED Q2H ON SPECIALTY MATTRASS FOR COMFORT LEFT ARM WITH DRESING DRY AND INTACT AT THIS TIME MADE COMFORTABLE WILL CONTINUE TO OBSERVE PT.
[2019-01-29] MEDS: SERTRALINE HCL 50 MG TABLET PO SCH (08:14)
[2019-01-29] MEDS: MAGNESIUM OXIDE 400 MG TABLET PO SCH (08:14)
[2019-01-29] MEDS: DIVALPROEX 250 MG TABLET.DR PO SCH (08:14)
[2019-01-29] MEDS: CLOPIDOGREL 75 MG TABLET PO SCH (08:14)
[2019-01-29] MEDS: POTASSIUM CHLORIDE 10 MEQ TAB.PRT.SR PO SCH (08:14)
[2019-01-29] MEDS: BACLOFEN 10 MG TABLET PO SCH ×2 (08:14→16:02)
[2019-01-29] MEDS: NYSTATIN/TRIAMCINOLONE CREAM 15 GM TUBE TOP SCH (08:15)
[2019-01-29] MEDS: Z GUARD REMEDY PASTE 57 GM TUBE TOP PRN (08:15)
[2019-01-29] MEDS: HYDROCORTISONE 2.5% CREAM 20 GM TUBE TOP SCH (08:16)
[2019-01-29] MEDS: CARVEDILOL 6.25 MG TABLET PO SCH (08:16)
[2019-01-29] MEDS: AMLODIPINE 5 MG TABLET PO SCH (08:16)
[2019-01-29] MEDS: VANCOMYCIN IV 1 G in PREMIXED 0 EACH IV SCH (08:40)
[2019-01-29] MEDS: PREGABALIN 25 MG CAPSULE PO SCH (09:14)
--- NOTE | 2019-01-29 09:56 | NUR ---
DR GREENE HERE TO SEE PATIENT AWARE OF THE MRSA WOUND WITH NO NEW ORDERS AT THIS TIME.
--- NOTE | 2019-01-29 10:10 | NUR ---
PHARMACY CLINICAL NOTES ( VANCOMYCIN DOSING) S: To continue vanco dosing for this 73 yo male for infected left arm (cellulitis) O: BUN/SCR 14/0.6 (01/26), WBC 7.9 (01/26), TEMP 97.8 Trough level: 17.8 (on 01/28 at 0830) ht 172.7 cm wt 67 kg A/P: Will continue same dose of vanco 1gm ivpb q12h for today. Next dose at 2100 tonight. Will monitor renal function. Will follow
[2019-01-29 11:09] VITALS: BP 111/73
--- NOTE | 2019-01-29 12:29 | NUR ---
PER THE BULLDOZER/LOADER/COMPACTOR/SCRAPER INTERNAL MEDICINE VETERINARY TECHNICIAN PATIENT WILL BE DISCHARGED TO [facility] TODAY WILL NEED EXTENDED IV ANTIBIOTICS AND A MID LINE WILL BE PLACED TODAY PRIOR TO DISCHARGE
[2019-01-29] MEDS ORDERED: RXVAN XX (12:46)
[2019-01-29] MEDS: HYDROCODONE/APAP 5-325MG TABLET PO PRN (13:37)
--- NOTE | 2019-01-29 13:40 | NUR ---
MID LINE INSERTED RIGHT UPPER ARM GAUGE 18 TOLERATED PROCEDURE WELL
--- NOTE | 2019-01-29 15:30 | NUR ---
CALLED THE [facility] AND REPORT GIVEN TO SUREKHA FOR CONTINUING CARE RE IV ANTIBIOTICS AND MIDLINE INSERTION AND SHE EXPRESSED UNDERSTANDING
[2019-01-29 16:08] VITALS: BP 107/62
--- NOTE | 2019-01-29 17:00 | NUR ---
PATIENT DISCHARGED PICKED UP BY THE AMBULANCE WITH ALL OF HIS PERSONAL BELONGINGS IN SATISFACTORY CONDITION.
== END 2019-01-29 17:00 | DRG 602 ==
LOC: ER 19:08 → MERGE 19:08 → MEDSURG3 20:07
PROVIDERS: ADMIT Internal Medicine Nephrology; ATTEND Internal Medicine Nephrology
PROC: 05HY33Z Insertion of Infusion Device into Upper Vein, Percutaneous Approach (ICD-10-PCS; principal; 2019-01-29)
DX: L03.114 Cellulitis of left upper limb (principal); R53.2 Functional quadriplegia; I69.354 Hemiplegia and hemiparesis following cerebral infarction affecting left non-dominant side; C44.609 Unspecified malignant neoplasm of skin of left upper limb, including shoulder; B36.9 Superficial mycosis, unspecified; Z89.612 Acquired absence of left leg above knee; R21 Rash and other nonspecific skin eruption; B95.2 Enterococcus as the cause of diseases classified elsewhere; B96.89 Other specified bacterial agents as the cause of diseases classified elsewhere; B95.62 Methicillin resistant Staphylococcus aureus infection as the cause of diseases classified elsewhere; I73.9 Peripheral vascular disease, unspecified; F41.9 Anxiety disorder, unspecified; I25.10 Atherosclerotic heart disease of native coronary artery without angina pectoris; I10 Essential (primary) hypertension; F03.90 Unspecified dementia, unspecified severity, without behavioral disturbance, psychotic disturbance, mood disturbance, and anxiety
CPT/HCPCS: 36415; 36569; 73060; 73090; 85025; 87040; 87070; 87077; A4217; A4663; G0378; J0696; J3370; J3490; J7050; J7060; Q0164

== ENCOUNTER 2019-06-20 15:03 | Inpatient (IN) | payer MEDICARE, MEDICAID ==
[~2019-06-20] VITALS: Ht 175.3 cm; Wt 74.8 kg
[~2019-06-20 15:03] MED LIST changes: -ACET650S13 RC; +DIVA250T4 PO; +HYDR-3326 PO; +KETO120S6 TP; -LORA1TAB PO; +MIRT15TA7 PO; +ONDA4TAB11 PO; -ONDA4TAB5 PO; +PROC10TA13 PO; +QUET50TA PO; +SERT50TA12 PO
[2019-06-20] MEDS ORDERED: AMLO5TAB9 PO (15:19)
[2019-06-20] MEDS ORDERED: QUET50TA PO (15:19)
[2019-06-20] MEDS ORDERED: MIRT15TA PO (15:19)
[2019-06-20] MEDS ORDERED: VICODIN PO (15:19)
[2019-06-20] MEDS ORDERED: CLOP75TA15 PO (15:19)
[2019-06-20] MEDS ORDERED: LORA1TAB PO (15:19)
[2019-06-20] MEDS ORDERED: KETO120S6 TP (15:19)
[2019-06-20] MEDS ORDERED: PREG150C PO (15:19)
[2019-06-20] MEDS ORDERED: SERT50TA PO (15:19)
[2019-06-20] MEDS ORDERED: ZOLP5TAB8 PO (15:19)
[2019-06-20] MEDS ORDERED: DIVA-78 PO (15:19)
[2019-06-20] MEDS ORDERED: MULT1TAB62 PO (15:19)
[2019-06-20] MEDS ORDERED: PROC10TA29 PO (15:19)
[2019-06-20] MEDS ORDERED: MAGN400T8 PO (15:19)
[2019-06-20] MEDS ORDERED: HYDR453.4 TP (15:19)
[2019-06-20] MEDS ORDERED: BACL10TA PO (15:19)
[2019-06-20] MEDS ORDERED: ATOR20TA PO (15:19)
[2019-06-20] MEDS ORDERED: POTA10TA15 PO (15:19)
[2019-06-20] MEDS ORDERED: ACET-2067 PO (15:19)
[2019-06-20] MEDS ORDERED: IV NORMAL SALINE 1000 ML BAG IV ONE (15:45)
[2019-06-20] MEDS ORDERED: PIPERACILLIN SODIUM/TAZOBACTAM 3.375 G in IV DEXTROSE 5% 50 ML IV ONE (15:45)
[2019-06-20] MEDS ORDERED: VANCOMYCIN IV 1,000 MG in IV DEXTROSE 5% 250 ML IV ONE (15:45)
[2019-06-20] MEDS ORDERED: VANCOMYCIN IV 200 ML ONE (15:53)
[2019-06-20] MEDS ORDERED: PIPERACILLIN/TAZOBACTAM/D5W 50 ML IV ONE (15:54)
[2019-06-20 15:59] LABS: BASOPHILS % (AUTO) 0.3 % (0.0-2.0); CREATININE 0.8 mg/dL (0.6-1.3); EOSINOPHILS # (AUTO) 0.4 K/uL (0.0-0.7); EOSINOPHILS % (AUTO) 4.2 % (0.0-7.0); HEMATOCRIT 39.2 % (36.7-47.1); LYMPHOCYTES # (AUTO) 0.9 K/uL (20.0-40.0); LYMPHOCYTES % (AUTO) 10.2 % (20.5-51.5); MEAN CORPUSCULAR HEMOGLOBIN 29.5 uug (23.8-33.4); MEAN CORPUSCULAR HGB CONC 33 g/dL (32.5-36.3); MEAN CORPUSCULAR VOLUME 88.5 fL (73.0-96.2); MONOCYTES # (AUTO) 0.5 K/uL (2.0-10.0); MONOCYTES % (AUTO) 5.6 % (0.0-11.0); NEUTROPHILS % (AUTO) 79.7 % (38.5-71.5); PLATELET COUNT (AUTO) 128 K/uL (152-348); POTASSIUM 4.2 mmol/L (3.5-5.1); RED BLOOD CELL COUNT(AUTO) 4.42 MIL/uL (4.06-5.63); WHITE BLOOD COUNT (AUTO) 8.8 K/uL (3.6-10.2)
[2019-06-20 16:12] LABS: BILIRUBIN,DIRECT 0.1 mg/dL (0.0-0.2); BILIRUBIN,TOTAL 0.4 mg/dL (0.2-1.0); TOTAL PROTEIN, SERUM 7.4 g/dL (6.4-8.2)
--- NOTE | 2019-06-20 18:14 | NUR ---
pt transfered to floor in stable condition. pt did not compain of pain in the left arm unless moving that extremety. pt did not request any pain med while in er. pt watching footbal on tv while in er, no sign of distress.
[2019-06-20 18:51] VITALS: BP 126/76
[2019-06-20] MEDS ORDERED: ONDANSETRON 4 MG/2 ML VIAL IV PRN (19:45)
[2019-06-20] MEDS ORDERED: PROCHLORPERAZINE MALEATE 10 MG TABLET PO PRN (19:45)
[2019-06-20] MEDS ORDERED: MAGNESIUM HYDROXIDE 30 ML LIQUID UDC PO PRN (19:45)
[2019-06-20] MEDS ORDERED: LORAZEPAM 1 MG TABLET PO PRN (19:45)
[2019-06-20] MEDS ORDERED: ACETAMINOPHEN 325 MG TABLET PO PRN (19:45)
--- NOTE | 2019-06-20 19:45 | NUR ---
Beginning of Shift/Med Surg Admission Received report from AM nurse Stacey SHETH. Pt is a new admit for L arm Cellulitis. AM nurse started admission process and endorsed to continue. Initial physical assessment done with Aide TITLE 1 TUTOR. Pt is noted to be alert and oriented x 3 but very hard of hearing. Needs to repeat information before patient comprehends. L sided severe weakness/rigidity noted. Face drooping on L side. 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 All VS within normal parameters. All skin issues documented and photos taken. Noted with overall dry skin, yellowish flakes and areas of dry/necrotic skin protruding. L leg amputated above the knee. Sacro-coccyx area is clean and dry. Teaching performed regarding wound and infection on L arm. Pt verbalized understanding but appears to need more reinforcement due to being very hard of hearing. Pt placed in position of comfort. Declined to have pillows on L side/to offload lower extremities. Will continue to monitor.
--- NOTE | 2019-06-20 20:15 | NUR ---
PHARMACY CLINICAL NOTES (VANCOMYCIN DOSING) S: 73 YO male , admitted for cellulitis, ordered Vancomycin O: BUN/SCR 17/.8; WBC 8.8, TEMP 98.3 ; DOSING WT 165 LBS A/P: PT received 1 dose of Vancomycin in ER @ 16:31, will Continue with dose of 1000 mg IVPB q14h next dose tomorrow morning dose # 2. Estimated peak of 35 and trough of 17. RX will order trough prior to 4th dose ( on 06/22 ~ 10:30) and adjust dose if necessary. will continue monitoring renal fxn
[2019-06-20 20:19] VITALS: BP 125/67
[2019-06-20] MEDS: ACETAMINOPHEN 325 MG TABLET PO PRN (20:31)
[2019-06-20] MEDS: ZOLPIDEM 5 MG TABLET PO SCH (20:59)
[2019-06-20] MEDS: ATORVASTATIN 20 MG TABLET PO SCH (20:59)
[2019-06-20] MEDS ORDERED: Medication Not On Formulary EA (Quetiapine Fumarate (Seroquel) 50 MG) PO SCH (21:00)
[2019-06-20] MEDS: QUETIAPINE FUMARATE 25 MG TABLET PO SCH (21:00)
--- NOTE | 2019-06-21 01:30 | NUR ---
Mid Shift Patient sleeping well at this time, likes to keep light on. Ambien was given at bedtime, and remains effective. No signs of pain, discomfort, difficulty of breathing or any new stroke. Will continue to monitor.
[2019-06-21] MEDS: ACETAMINOPHEN 325 MG TABLET PO PRN ×2 (04:19→10:29)
[2019-06-21 05:10] VITALS: BP 121/81
[2019-06-21] MEDS ORDERED: VANCOMYCIN IV 1,000 MG in IV DEXTROSE 5% 250 ML IV SCH (06:30)
--- NOTE | 2019-06-21 07:45 | NUR ---
Patient resting comfortably in bed at this time. no signs of distress. awake/alert x3. bed rest. No complaints of pain at this time. Will continue to monitor throughout shift. Safety measures implemented.
[2019-06-21 07:51] LABS: BASOPHILS % (AUTO) 0.6 % (0.0-2.0); EOSINOPHILS # (AUTO) 0.2 K/uL (0.0-0.7); EOSINOPHILS % (AUTO) 3.2 % (0.0-7.0); HEMATOCRIT 37.8 % (36.7-47.1); HEMOGLOBIN 12.3 g/dL (12.5-16.3); LYMPHOCYTES # (AUTO) 0.5 K/uL (20.0-40.0); LYMPHOCYTES % (AUTO) 5.8 % (20.5-51.5); MEAN CORPUSCULAR HEMOGLOBIN 28.7 uug (23.8-33.4); MEAN CORPUSCULAR HGB CONC 33 g/dL (32.5-36.3); MONOCYTES # (AUTO) 0.4 K/uL (2.0-10.0); MONOCYTES % (AUTO) 5.1 % (0.0-11.0); NEUTROPHILS # (AUTO) 6.8 K/uL (1.8-8.9); NEUTROPHILS % (AUTO) 85.3 % (38.5-71.5); PLATELET COUNT (AUTO) 105 K/uL (152-348); WHITE BLOOD COUNT (AUTO) 7.9 K/uL (3.6-10.2)
[2019-06-21 08:18] LABS: CARBON DIOXIDE 25 mmol/L (21-32); CHLORIDE 105 mmol/L (98-107); CHOLESTEROL 73 mg/dL (<200); CREATININE 0.5 mg/dL (0.6-1.3); GLUCOSE 114 mg/dL (74-106); HDL CHOLESTEROL 31 mg/dL (40-60); MAGNESIUM 1.7 mg/dL (1.8-2.4); PHOSPHOROUS 3.5 mg/dL (2.5-4.9); POTASSIUM 3.8 mmol/L (3.5-5.1); TRIGLYCERIDES 50 MG/DL (30-150); UREA NITROGEN, BLOOD 13 mg/dL (7-18)
[2019-06-21] MEDS: AMLODIPINE 5 MG TABLET PO SCH (09:00)
[2019-06-21] MEDS ORDERED: BACLOFEN 10 MG TABLET PO SCH (09:00)
[2019-06-21] MEDS ORDERED: [UNRECOGNIZED DRUG - OTHER] PO SCH (09:00)
[2019-06-21] MEDS: CLOPIDOGREL 75 MG TABLET PO SCH (09:25)
[2019-06-21] MEDS: SERTRALINE HCL 50 MG TABLET PO SCH (09:25)
[2019-06-21] MEDS: MIRTAZAPINE 15 MG TABLET PO SCH (09:25)
[2019-06-21] MEDS: MAGNESIUM OXIDE 400 MG TABLET PO SCH (09:25)
[2019-06-21] MEDS: MULTIVIT, IRON, MIN NO. 8, FA TABLET PO SCH (09:25)
[2019-06-21] MEDS: PREGABALIN 50 MG CAPSULE PO SCH ×2 (09:25→18:41)
[2019-06-21] MEDS: DIVALPROEX 500 MG TABLET.DR PO SCH (09:25)
[2019-06-21] MEDS: BACLOFEN 10 MG TABLET PO SCH ×2 (09:26→18:41)
[2019-06-21] MEDS: CARVEDILOL 6.25 MG TABLET PO SCH ×2 (09:26→18:41)
--- NOTE | 2019-06-21 10:30 | NUR ---
Patient complaining of lower extremity pain 6/10 on pain scale. Tylenol 650 mg PO administered.
[2019-06-21 12:02] VITALS: BP 96/63
--- NOTE | 2019-06-21 14:01 | NUR ---
PHARMACY CLINICAL NOTES (VANCOMYCIN DOSING) S: 73 YO male , Continue vanco for cellulitis, ordered Vancomycin O: BUN/SCR 13/0.5; WBC 7.9, TEMP 98.4 ; DOSING WT 165 LBS A/P: Since renal function is improved, will increase dose to 1 gram IV every 10 hrs(2nd dose today at 1600) and draw trough by 4th dose(ordered for tomorrow at 1130) for expected trough around 16. Will monitor daily.
[2019-06-21] MEDS: KETOCONAZOLE 2% SHAMPOO 120 ML BOTTLE TP SCH (15:21)
[2019-06-21] MEDS: HYDROCORTISONE 2.5% ONT. 28.35 GM TUBE TP SCH (15:21)
[2019-06-21 16:25] VITALS: BP 114/74
[2019-06-21] MEDS: VANCOMYCIN IV 1,000 MG in IV DEXTROSE 5% 250 ML IV SCH (16:42)
--- NOTE | 2019-06-21 20:07 | NUR ---
RECEIVED PATIENT AWAKE IN BED. A/O X3. SON AT BEDSIDE. PATIENT DENIES ANY PAIN OR DISCOMFORT AT THIS TIME. NO RESP. DISTRESS NOTED. DRESSING NOTED TO LEFT UPPER ARM, C/D/I. H/L INTACT AND PATENT. NO RESP. DISTRESS NOTED. CALL LIGHT IN REACH. BED ALARM ON. ALL NEEDS ATTENDED. WILL CONTINUE TO MONITOR AND ASSESS.
[2019-06-21] MEDS: ZOLPIDEM 5 MG TABLET PO SCH (20:32)
[2019-06-21] MEDS: ATORVASTATIN 20 MG TABLET PO SCH (20:33)
[2019-06-21] MEDS: QUETIAPINE FUMARATE 25 MG TABLET PO SCH (20:33)
[2019-06-21 20:34] VITALS: BP 120/75
--- NOTE | 2019-06-22 02:00 | NUR ---
received report from production supervisor off shift nurse. no s/s of acute distress and v/s stable. will continue plan of care.
[2019-06-22] MEDS: VANCOMYCIN IV 1,000 MG in IV DEXTROSE 5% 250 ML IV SCH (02:46)
[2019-06-22 04:00] VITALS: BP 116/89
[2019-06-22] MEDS: CARVEDILOL 6.25 MG TABLET PO SCH ×2 (08:00→17:09)
[2019-06-22] MEDS: AMLODIPINE 5 MG TABLET PO SCH (09:00)
[2019-06-22] MEDS: MIRTAZAPINE 15 MG TABLET PO SCH (09:32)
[2019-06-22] MEDS: MULTIVIT, IRON, MIN NO. 8, FA TABLET PO SCH (09:32)
[2019-06-22] MEDS: DIVALPROEX 500 MG TABLET.DR PO SCH (09:32)
[2019-06-22] MEDS: BACLOFEN 10 MG TABLET PO SCH ×2 (09:32→17:08)
[2019-06-22] MEDS: SERTRALINE HCL 50 MG TABLET PO SCH (09:33)
[2019-06-22] MEDS: MAGNESIUM OXIDE 400 MG TABLET PO SCH (09:33)
[2019-06-22] MEDS: PREGABALIN 50 MG CAPSULE PO SCH ×2 (09:33→17:08)
[2019-06-22] MEDS: CLOPIDOGREL 75 MG TABLET PO SCH (09:33)
[2019-06-22] MEDS: HYDROCORTISONE 2.5% ONT. 28.35 GM TUBE TP SCH (09:35)
--- NOTE | 2019-06-22 11:26 | NUR ---
Received pt. resting in bed alert oriented x3 confused. IV in R AC 20 gauge intact patent saline lock. Pt. denies SOB/ difficulty breathing. Pt. denies pain or discomfort. Safety measures in place. Call light within reach. Will continue to monitor pt.
[2019-06-22 11:53] VITALS: BP 100/67
[2019-06-22] MEDS: ACETAMINOPHEN 325 MG TABLET PO PRN ×2 (12:22→21:06)
--- NOTE | 2019-06-22 12:25 | NUR ---
PHARMACY CLINICAL NOTES (VANCOMYCIN DOSING) S: To continue vanco dosing for this 73 yo male patient for cellulitis O: BUN/SCR 13/0.5 (06/21); WBC 7.9 (06/21), TEMP 99 Vanco trough level on 06/22 at 1130: 23.8 ht 175 cm wt 74.8 kg A/P: Since the vanco trough level is above 20 mcg/ml, will change dose to 1250 mg IV every 16 hrs. 1st dose today at 2200. and draw trough by 4th dose(not yet ordered) for expected trough around 15. Will monitor daily.
[2019-06-22 15:45] VITALS: BP 110/70
--- NOTE | 2019-06-22 18:37 | NUR ---
Pt. compliant with medication. pt. refused to have dressing changed on left upper arm. MGIUEL ANGEL castro also asked pt. if he wanted dressing to be changed later in day and pt. refused. Pt. asked for tylenol during shift for 5/10 pain in right arm. Pain ceased after medication. Pt. denies SOB or difficulty breathing. Safety measures in place. Call light within reach. Will continue to monitor pt.
[2019-06-22 19:45] VITALS: BP 101/72
[2019-06-22] MEDS: MUPIROCIN 2% OINT 22 GM TUBE NS SCH (20:46)
[2019-06-22] MEDS: ATORVASTATIN 20 MG TABLET PO SCH (20:47)
[2019-06-22] MEDS: QUETIAPINE FUMARATE 25 MG TABLET PO SCH (20:47)
[2019-06-22] MEDS: ZOLPIDEM 5 MG TABLET PO SCH (21:00)
[2019-06-22] MEDS: VANCOMYCIN IV 1,250 MG in IV DEXTROSE 5% 250 ML IV SCH (21:05)
[2019-06-23 04:41] VITALS: BP 101/58
[2019-06-23 06:25] LABS: BASOPHILS % (AUTO) 0.4 % (0.0-2.0); EOSINOPHILS # (AUTO) 0.4 K/uL (0.0-0.7); HEMATOCRIT 34.4 % (36.7-47.1); HEMOGLOBIN 11.4 g/dL (12.5-16.3); LYMPHOCYTES # (AUTO) 0.8 K/uL (20.0-40.0); LYMPHOCYTES % (AUTO) 8.6 % (20.5-51.5); MEAN CORPUSCULAR HEMOGLOBIN 28.8 uug (23.8-33.4); MEAN CORPUSCULAR HGB CONC 33 g/dL (32.5-36.3); MEAN CORPUSCULAR VOLUME 86.9 fL (73.0-96.2); MONOCYTES # (AUTO) 0.7 K/uL (2.0-10.0); MONOCYTES % (AUTO) 7.2 % (0.0-11.0); NEUTROPHILS # (AUTO) 7.4 K/uL (1.8-8.9); NEUTROPHILS % (AUTO) 79.8 % (38.5-71.5); PLATELET COUNT (AUTO) 105 K/uL (152-348); RED BLOOD CELL COUNT(AUTO) 3.96 MIL/uL (4.06-5.63); WHITE BLOOD COUNT (AUTO) 9.3 K/uL (3.6-10.2)
[2019-06-23 06:44] LABS: BILIRUBIN,TOTAL 0.6 mg/dL (0.2-1.0); CREATININE 0.6 mg/dL (0.6-1.3); MAGNESIUM 1.9 mg/dL (1.8-2.4); PHOSPHOROUS 3.8 mg/dL (2.5-4.9); POTASSIUM 3.1 mmol/L (3.5-5.1); TOTAL PROTEIN, SERUM 6.4 g/dL (6.4-8.2)
--- NOTE | 2019-06-23 06:50 | NUR ---
patient slept well last night. dressing changed. Patinet is not in any distress. no changes. bed alarm on, side rails up x 2, bed in locked position, call light within reach. will endorse to am shift.
--- NOTE | 2019-06-23 07:40 | NUR ---
PT RESTING COMFORTABLY IN BED. AT THIS TIME. NO SIGNS OF ACUTE DISTRESS OR SOB. PT AWAKE. ALERT AND ORIENTED X3. PT DENIES PAIN AT THIS TIME. SAFETY MEASURES IMPLEMENTED. CALL LIGHT WITHIN REACH. WILL CONTINUE TO MONITOR.
[2019-06-23] MEDS: CARVEDILOL 6.25 MG TABLET PO SCH ×2 (08:20→17:15)
[2019-06-23] MEDS: MIRTAZAPINE 15 MG TABLET PO SCH (08:21)
[2019-06-23] MEDS: MAGNESIUM OXIDE 400 MG TABLET PO SCH (08:21)
[2019-06-23] MEDS: BACLOFEN 10 MG TABLET PO SCH ×2 (08:21→17:10)
[2019-06-23] MEDS: PREGABALIN 50 MG CAPSULE PO SCH ×2 (08:21→17:10)
[2019-06-23] MEDS: SERTRALINE HCL 50 MG TABLET PO SCH (08:21)
[2019-06-23] MEDS: DIVALPROEX 500 MG TABLET.DR PO SCH (08:21)
[2019-06-23] MEDS: CLOPIDOGREL 75 MG TABLET PO SCH (08:22)
[2019-06-23] MEDS: MULTIVIT, IRON, MIN NO. 8, FA TABLET PO SCH (08:22)
[2019-06-23] MEDS: AMLODIPINE 5 MG TABLET PO SCH (08:22)
[2019-06-23] MEDS: MUPIROCIN 2% OINT 22 GM TUBE NS SCH ×2 (08:34→20:21)
[2019-06-23 11:52] VITALS: BP 99/66
--- NOTE | 2019-06-23 12:00 | NUR ---
PT IS MEDICATION COMPLIANT. NO ACUTE DISTRESS OR SOB NOTED AT THIS TIME. PT IS COMFORTABLE IN BED. PT REPOSITIONED Q2 HOURS. CALL LIGHT WITHIN REACH. BED LOCKED IN LOW POSITION. PT DENIES PAIN AT THIS TIME. PT IS AWAKE, ALERT AND ORIENTED X3. WILL CONTINUE TO MONITOR.
[2019-06-23] MEDS: HYDROCORTISONE 2.5% ONT. 28.35 GM TUBE TP SCH (12:42)
[2019-06-23] MEDS ORDERED: POTASSIUM CHLORIDE 20 MEQ TAB.PRT.SR PO ONE (13:15)
--- NOTE | 2019-06-23 13:16 | NUR ---
PHARMACY CLINICAL NOTES (VANCOMYCIN DOSING) S: To continue vanco dosing for this 73 yo male patient for cellulitis O: BUN/SCR 8/0.6; WBC 9.3, TEMP 98.3 Vanco trough level on 06/22 at 1130: 23.8 ht 175 cm wt 74.8 kg A/P: Will continue new vanco regimen of 1250 mg IV every 16 hrs, 2nd dose today at 1400, and draw trough by 4th dose(not yet ordered) for expected trough around 15. Will monitor daily.
[2019-06-23] MEDS: VANCOMYCIN IV 1,250 MG in IV DEXTROSE 5% 250 ML IV SCH (13:56)
--- NOTE | 2019-06-23 14:30 | NUR ---
OFFERED PT PAIN MEDICATION PRIOR TO PERFORMING ASSESSMENT OF LEFT UPPER ARM WOUND AND TREATMENT. PT REFUSED ASSESSMENT AND TREATMENT AT THIS TIME. PT STATES THAT HE WISHES TO HAVE WOUND ASSESSES AND TREATED AT NIGHT AND ONLY ONCE PER DAY. EXPLAINED RISKS AND BENEFITS OF WOUND ASSESSMENT AND TREATMENT. PT UNDERSTANDS.
[2019-06-23 16:00] VITALS: BP 122/88
[2019-06-23] MEDS: HYDROCODONE/APAP 5-325MG TABLET PO PRN (18:34)
--- NOTE | 2019-06-23 18:35 | NUR ---
PT IS RESTING COMFORTABLY IN BED. PT REPOSITIONED. PT REQUESTED PAIN MED AT THIS TIME. MADE PATIENT AWARE OF STORE CLERK CASHIER RN NEED FOR ASSESSMENT AND TREATMENT OF LEFT UPPER ARM WOUND. NO ACUTE DISTRESS NOTED. NO SOB NOTED. CALL LIGHT WITHIN REACH. BED LOCKED IN LOW POSITION. WILL GIVE REPORT ACCORDINGLY.
[2019-06-23 19:40] VITALS: BP 118/73
[2019-06-23] MEDS: ZOLPIDEM 5 MG TABLET PO SCH (20:21)
[2019-06-23] MEDS: ATORVASTATIN 20 MG TABLET PO SCH (20:21)
[2019-06-23] MEDS: QUETIAPINE FUMARATE 25 MG TABLET PO SCH (20:21)
[2019-06-24 04:33] VITALS: BP 112/69
[2019-06-24] MEDS: VANCOMYCIN IV 1,250 MG in IV DEXTROSE 5% 250 ML IV SCH ×2 (05:12→22:16)
[2019-06-24] MEDS: ACETAMINOPHEN 325 MG TABLET PO PRN (05:26)
--- NOTE | 2019-06-24 06:43 | NUR ---
Patient slept well last night, was able to change dressing. IV site on Right AC , per patient, was painful , changed IV site to Right ankle. Patient and intact. IV ATB given. In no distress at this time, endorsed to AM shift
[2019-06-24 07:18] LABS: CARBON DIOXIDE 30 mmol/L (21-32); CHLORIDE 106 mmol/L (98-107); CREATININE 0.6 mg/dL (0.6-1.3); GLUCOSE 89 mg/dL (74-106); POTASSIUM 3.4 mmol/L (3.5-5.1); UREA NITROGEN, BLOOD 10 mg/dL (7-18)
--- NOTE | 2019-06-24 07:39 | NUR ---
RECEIVED PT RESTING COMFORTABLY IN BED. NO SIGNS OF ACUTE DISTRESS OR SOB. CALL LIGHT WITHIN REACH. BED LOCKED AND IN LOW POSITION. WILL CONTINUE TO MONITOR.
[2019-06-24] MEDS: CARVEDILOL 6.25 MG TABLET PO SCH ×2 (08:00→17:28)
[2019-06-24] MEDS: AMLODIPINE 5 MG TABLET PO SCH (09:00)
[2019-06-24] MEDS: BACLOFEN 10 MG TABLET PO SCH ×2 (09:08→17:22)
[2019-06-24] MEDS: MULTIVIT, IRON, MIN NO. 8, FA TABLET PO SCH (09:08)
[2019-06-24] MEDS: CLOPIDOGREL 75 MG TABLET PO SCH (09:08)
[2019-06-24] MEDS: DIVALPROEX 500 MG TABLET.DR PO SCH (09:08)
[2019-06-24] MEDS: MAGNESIUM OXIDE 400 MG TABLET PO SCH (09:08)
[2019-06-24] MEDS: SERTRALINE HCL 50 MG TABLET PO SCH (09:11)
[2019-06-24] MEDS: MIRTAZAPINE 15 MG TABLET PO SCH (09:13)
[2019-06-24] MEDS: HYDROCORTISONE 2.5% ONT. 28.35 GM TUBE TP SCH (09:17)
[2019-06-24] MEDS: MUPIROCIN 2% OINT 22 GM TUBE NS SCH ×2 (09:18→20:12)
--- NOTE | 2019-06-24 09:34 | NUR ---
PHARMACY CLINICAL NOTES (VANCOMYCIN DOSING) S: To continue vanco dosing for this 73 yo male patient for cellulitis O: BUN/SCR 10/0.6; WBC 9.3 (06/23) , TEMP 98.7 Vanco trough level on 06/22 at 1130: 23.8 ht 175 cm wt 74.8 kg A/P: Will continue same dose of vanco 1250 mg IV every 16 hrs, 3rd dose today at 0515, and draw trough by 4th dose (ordered for marcelino at 2130- RN has been informed to hold 2200 dose if vanco trough level above 20 mcg/ml). Pharmacy shall review the level in am & adjust the dose if needed. Will monitor daily.
[2019-06-24] MEDS: PREGABALIN 50 MG CAPSULE PO SCH ×2 (09:49→17:22)
[2019-06-24] MEDS ORDERED: POTASSIUM CHLORIDE 20 MEQ TAB.PRT.SR PO ONE (11:00)
[2019-06-24 11:44] VITALS: BP 107/55
--- NOTE | 2019-06-24 12:00 | NUR ---
PT RESTING COMFORTABLY. PT REPOSITIONED. NO ACUTE DISTRESS NOTED. NO SOB NOTED. PT DENIES PAIN AT THIS TIME. CALL LIGHT WITHIN REACH. PT IS MED COMPLIANT. PT IS AWAKE. ALERT AND ORIENTED X 3. WILL CONTINUE TO MONITOR.
[2019-06-24] MEDS: HYDROCODONE/APAP 5-325MG TABLET PO PRN (14:27)
[2019-06-24] MEDS: KETOCONAZOLE 2% SHAMPOO 120 ML BOTTLE TP SCH (14:36)
[2019-06-24 16:03] VITALS: BP 106/78
[2019-06-24] MEDS ORDERED: NYSTATIN POWDER 15 GM BOTTLE TOP SCH (17:45)
--- NOTE | 2019-06-24 18:00 | NUR ---
WOUND DRESSING CHANGED BY WOUND CARE NURSE. WOUND CARE NURSE WILL SPEAK WITH PT IN ORDER TO OBTAIN A WOUND CULTURE AND POSSIBLE TREATMENT AND DEBRIDEMENT. PT RESTING COMFORTABLE IN BED. NO ACUTE DISTRESS OR SOB NOTED. PT MEDICATION COMPLIANT. CALL LIGHT WITHIN REACH. BED LOCKED AND IN LOW POSITION. FOR QUYNH [place]O, DO NOT GIVE 2200 DOSE IF 2130 TROUGH IS >20. WILL GIVE REPORT ACCORDINGLY.
--- NOTE | 2019-06-24 19:20 | NUR ---
RECEIVED PATIENT LYING IN BED. AAOX3. IN NO ACUTE DISTRESS. DENIES ANY PAIN OR SOB AT THIS TIME. APPEARS CALM AND COOPERATIVE. IV SITE O RIGHT ANKLE INTACT AND PATENT. LEFT ARM WITH DRESSING CLEAN AND INTACT. ISOLATION PRECAUTION OBSERVE. NEEDS ASSESSED AND ATTENDED TO. SAFETY MEASURE INITIATED AND CALL WHEAT WITHIN REACH.
[2019-06-24 19:59] VITALS: BP 123/81
[2019-06-24] MEDS: QUETIAPINE FUMARATE 25 MG TABLET PO SCH (20:11)
[2019-06-24] MEDS: ATORVASTATIN 20 MG TABLET PO SCH (20:12)
[2019-06-24] MEDS: ZOLPIDEM 5 MG TABLET PO SCH (20:12)
[2019-06-24] MEDS: NYSTATIN POWDER 15 GM BOTTLE TOP SCH (20:12)
[2019-06-25 04:57] VITALS: BP 103/79
--- NOTE | 2019-06-25 06:09 | NUR ---
AAOX3. IN NO ACUTE DISTRESS. SLEPT WELL LAST NIGHT. IV SITE ON RIGHT ANKLE INTACT AND PATENT. NO ADVERSE REACTION FROM IV ABX. LEFT ARM WITH DRESSING CLEAN AND INTACT. ISOLATION PRECAUTION OBSERVE. SAFETY MEASURE MAINTAINED AND CALL WHEAT WITHIN REACH.
[2019-06-25 06:40] LABS: CARBON DIOXIDE 30 mmol/L (21-32); CHLORIDE 107 mmol/L (98-107); CREATININE 0.5 mg/dL (0.6-1.3); GLUCOSE 82 mg/dL (74-106); POTASSIUM 3.6 mmol/L (3.5-5.1); UREA NITROGEN, BLOOD 9 mg/dL (7-18)
--- NOTE | 2019-06-25 07:20 | NUR ---
RECEIVED PATIENT IN BED ASLEEP OPENS EYES WHEN NAME IS CALLED BUT PROMPTLY FALLS ASLEEP ON ROOM AIR WITH NO SOB AT THIS TIME TURNED AND REPOSITIONED Q2H CALL LIGHTS AND PERSONAL BELONGINGS ARE WITHIN EASY REACH MADE COMFORTABLE AND WILL CONTINUE TO OBSERVE.
[2019-06-25] MEDS: MIRTAZAPINE 15 MG TABLET PO SCH (08:44)
[2019-06-25] MEDS: BACLOFEN 10 MG TABLET PO SCH ×2 (08:44→16:09)
[2019-06-25] MEDS: DIVALPROEX 500 MG TABLET.DR PO SCH (08:44)
[2019-06-25] MEDS: CLOPIDOGREL 75 MG TABLET PO SCH (08:44)
[2019-06-25] MEDS: MAGNESIUM OXIDE 400 MG TABLET PO SCH (08:44)
[2019-06-25] MEDS: PREGABALIN 50 MG CAPSULE PO SCH ×2 (08:44→16:09)
[2019-06-25] MEDS: SERTRALINE HCL 50 MG TABLET PO SCH (08:44)
[2019-06-25] MEDS: MULTIVIT, IRON, MIN NO. 8, FA TABLET PO SCH (08:44)
[2019-06-25] MEDS: CARVEDILOL 6.25 MG TABLET PO SCH (08:45)
[2019-06-25] MEDS: AMLODIPINE 5 MG TABLET PO SCH (08:45)
[2019-06-25] MEDS: NYSTATIN POWDER 15 GM BOTTLE TOP SCH (08:46)
[2019-06-25] MEDS: HYDROCORTISONE 2.5% ONT. 28.35 GM TUBE TP SCH (08:47)
[2019-06-25] MEDS: MUPIROCIN 2% OINT 22 GM TUBE NS SCH (08:47)
[2019-06-25] MEDS ORDERED: SODIUM HYPOCHLORITE 0.125% 473 ML BOTTLE TP SCH (09:00)
--- NOTE | 2019-06-25 09:26 | NUR ---
PHARMACY CLINICAL NOTES (VANCOMYCIN DOSING) S: To continue vanco dosing for this 73 yo male patient for cellulitis O: BUN/SCR 9/0.5; WBC 9.3 (06/23) , TEMP 97.6 Vanco trough level on 06/22 at 1130: 23.8 vanco trough level on 06/24 at 2130: 18.4 ht 175 cm wt 74.8 kg A/P: Since vanco trough level is within therapeutic range, will continue same dose of vanco 1250 mg IV every 16 hrs for now. Will monitor renal function & repeat the level if needed. Will monitor daily.
--- NOTE | 2019-06-25 10:08 | NUR ---
WOUND CARE CONSULT WOUND CARE RECEIVED CONSULT FOR LEFT UPPER ARM WOUND. WOUND CARE WILL DEFER CONSULT AND TREATMENT PLANS TO PLASTIC SURGICAL TEAM WHO ARE CURRENTLY FOLLOWING THIS PATIENT. PATIENT WITH MAINE AT 13, ALL PRESSURE ULCER PREVENTION MEASURES ARE NOTED TO BE IN PLACE AT THIS TIME. WILL SEE PRN.
--- NOTE | 2019-06-25 12:00 | NUR ---
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
[2019-06-25 12:03] VITALS: BP 102/69
--- NOTE | 2019-06-25 13:08 | NUR ---
PER [facility] INFECTIOUS DISEASE WITH NEW ATB ORDER AND NOTED.
[2019-06-25] MEDS: ACETAMINOPHEN 325 MG TABLET PO PRN (13:54)
[2019-06-25] MEDS: VANCOMYCIN IV 1,250 MG in IV DEXTROSE 5% 250 ML IV SCH (14:00)
--- NOTE | 2019-06-25 14:03 | NUR ---
PATIENT IS BEING PREPPED FOR DISCHARGE ATB IS NOW ORAL PER [facility].
[2019-06-25 16:00] VITALS: BP 101/70
--- NOTE | 2019-06-25 16:13 | NUR ---
Patient is scheduled for discharge now. Care and treatment discussed at a.m. rounds; refusing debridement. Will monitor if there is a change in tx plan. Addendum: 06/25/19 at [address] Amended: Links added.
--- NOTE | 2019-06-25 16:21 | NUR ---
CALLED [facility] AND REPORT GIVEN TO WILL RN CONCRETE FENCE BUILDER FOR CONTINUING CARE PATIENT AWARE AND SIGNED HIS DISCHARGE INSTRUCTIONS.
--- NOTE | 2019-06-25 16:30 | NUR ---
PATIENT DISCHARGED PICKED UP BY THE AMBULANCE IN SATISFACTORY CONDITION WITH ALL OF HIS PERSONAL BELONGINGS.[facility] REMAINS INTACT TO HIS RIGHT ANKLE AND IT WAS ENDORSED TO WILL RN AT [facility] .
== END 2019-06-25 16:30 | DRG 603 ==
LOC: ER 15:03 → MEDSURG3 18:12
PROVIDERS: ADMIT Internal Medicine; ATTEND Internal Medicine
DX: L03.114 Cellulitis of left upper limb (principal); I69.354 Hemiplegia and hemiparesis following cerebral infarction affecting left non-dominant side; C44.609 Unspecified malignant neoplasm of skin of left upper limb, including shoulder; K21.9 Gastro-esophageal reflux disease without esophagitis; L21.9 Seborrheic dermatitis, unspecified; M10.9 Gout, unspecified; I25.10 Atherosclerotic heart disease of native coronary artery without angina pectoris; I11.9 Hypertensive heart disease without heart failure; L30.4 Erythema intertrigo; Z22.322 Carrier or suspected carrier of Methicillin resistant Staphylococcus aureus; I73.9 Peripheral vascular disease, unspecified; Z79.02 Long term (current) use of antithrombotics/antiplatelets; F03.90 Unspecified dementia, unspecified severity, without behavioral disturbance, psychotic disturbance, mood disturbance, and anxiety; Z89.612 Acquired absence of left leg above knee
CPT/HCPCS: 36415; 70030-TC; 71045; 83605; 83735; 84100; 85025; 85730; 87040; 93005; A4663; G0378; J2543; J3370; J7030; J7040; J7050; J7060; Q0164